=== PATIENT | male | born 1985 | race Caucasian/White ===

== ENCOUNTER 2020-11-05 12:15 | Emergency (ER) | payer OTHER ==
[~2020-11-05] VITALS: Ht 162.6 cm; Wt 90.0 kg
[2020-11-05 12:15] VITALS: BP 141/79
[2020-11-05] MEDS ORDERED: IBUPROFEN 600 MG TABLET. PO ONE (13:00)
[2020-11-05] MEDS ORDERED: HYDROcodone/APAP 5/325MG 1 TAB TABLET PO ONE (13:00)
--- NOTE | 2020-11-05 13:14 | RAD ---
Right knee 4 views: Reason for examination: [place] a pop after stepping into a hole. There is no evidence of an acute site of fracture or dislocation. The bone density is normal. No abno rmal periosteal reaction is seen. The inferior end of an intramedullary merle is seen in the distal fem ur. Joint spaces are maintained. IMPRESSION: No acute abnormality evident at the right knee. Electronically signed by: Dahiana Rosario MD (11/05/2020 1:12 PM) [id number]
--- NOTE | 2020-11-05 13:22 | PHYS DOC ---
Adult General Chief Complaint Chief Complaint: KNEE INJURY HPI HPI Patient is a 35-year-old male presents emergency department complaining of stepping into a hole approximately 40 minutes prior to arrival and feeling his right knee pop. Patient reports he felt like it buckled backwards. Patient complains of an 8 out of 10 pain. Denies numbness or tingling distally to his right knee. Denies any other physical injury from this incident. Patient reports it is hard to walk. Patient reports an allergy to penicillin, reports taking Protonix at home for gastric reflux. Denies any other physical complaints or physical concerns. (ANA THOMAS APRN) Review of Systems Review of Systems 14 body systems of review of systems have been reviewed. See HPI for pertinent positives and negative responses, otherwise all other systems are negative, nonpertinent or noncontributory. Constitutional: Negative except as outlined in HPI above. Skin: Negative except as outlined in HPI above. Eyes: Negative except as outlined in HPI above. HENT: Negative except as outlined in HPI above. Respiratory: Negative except as outlined in HPI above. Cardiovascular: Negative except as outlined in HPI above. GI: Negative except as outlined in HPI above. : Negative except as outlined in HPI above. Musculoskeletal: Negative except as outlined in HPI above. Integument: Negative except as outlined in HPI above. Neurologic: Negative except as outlined in HPI above. Endocrine: Negative except as outlined in HPI above. Lymphatic: Negative except as outlined in HPI above. Psychiatric: Negative except as outlined in HPI above. (ANA THOMAS APRN) Current Medications Current Medications Current Medications Medications (Trade) Dose Ordered Sig/Kai Start Time Stop Time Status Last Admin Dose Admin Acetaminophen/ Hydrocodone Bitart (Lortab 5/325) 1 tab 1X ONCE 11/05/20 13:00 11/05/20 13:01 UNV Ibuprofen (Motrin) 600 mg 1X ONCE 11/05/20 13:00 11/05/20 13:01 UNV (ANA THOMAS APRN) Allergies Allergies Allergies Coded Allergies Type Severity Reaction Last Updated Verified Penicillins Allergy Unknown 11/05/20 Yes (ANA THOMAS APRN) Physical Exam Physical Exam Constitutional: Well developed, well nourished, no acute distress, non-toxic appearance. 35-year-old male in no apparent distress however is self splinting right knee. HENT: Normocephalic, atraumatic. Eyes: Conjunctiva normal, no discharge. Neck: Normal range of motion, no stridor. Cardiovascular: No cyanosis appreciated, distal cap refill less than 2 seconds. Lungs & Thorax: Patient is in no respiratory distress, no audible adventitious lung sounds appreciated. Abdomen: Nontender, no abnormalities noted. Skin: Warm, dry, no erythema, no rash. Back: No tenderness, no deformities. Extremities: No tenderness, no cyanosis, no clubbing, ROM intact, no edema. Negative valgus/varus/Hernan's/Juhi's/anterior drawer test for ligamentous knee injury, no crepitus appreciated, no swelling appreciated, no skin discoloration appreciated, no deformities appreciated. Cap refill less than 2 seconds, 2+ dorsalis pedis/posterior tibial pulse. Neurologic: Alert and oriented X 3, normal motor function, normal sensory function, no focal deficits noted. Psychologic: Affect normal, judgement normal, mood normal. (ANA THOMAS APRN) EKG EKG [] (ANA THOMAS APRN) Radiology/Procedures Radiology/Procedures PATIENT: JEANINE LU ACCOUNT: [id number] : 1985 LOCATION: ER AGE: 35 SEX: M EXAM STATUS: REG ER ORD. PHYSICIAN: ANA THOMAS APRN REASON: [place] a pop after stepping into a hole PROCEDURE: KNEE RIGHT 4V Right knee 4 views: Reason for examination: [place] a pop after stepping into a hole. There is no evidence of an acute site of fracture or dislocation. The bone density is normal. No abnormal periosteal reaction is seen. The inferior end of an intramedullary merle is seen in the distal femur. Joint spaces are maintained. IMPRESSION: No acute abnormality evident at the right knee. Electronically signed by: Navi Gonzales MD (11/05/2020 1:12 PM) [id number] DICTATED AND SIGNED BY: NAVI GONZALES MD DATE: 11/05/20 1310 (ANA THOMAS APRN) Heart Score C/O Chest Pain: No Risk Factors: Risk Factors: DM, Current or recent (<one month) smoker, HTN, HLP, family history of CAD, obesity. Risk Scores: Risk Factors: DM, Current or recent (<one month) smoker, HTN, HLP, family history of CAD, obesity. (ANA THOMAS APRN) Course & Med Decision Making Course & Med Decision Making Pertinent Labs and Imaging studies reviewed. (See chart for details) 35-year-old male, vital signs reviewed, presents to the emergency department concerning right knee injury after stepping into a hole while at work. Physical examination concerning for possible bony knee injury versus ligamentous knee sprain, will order 4 view x-ray of right knee, ice packs, p.o. ibuprofen and Perkins for 8 out of 10 pain. X-ray imaging negative for acute fracture, this is most likely a sprain of the right knee, discussed findings with patient, discussed knee immobilizer, Kenn wrap, RICE therapy, pain medication use, strict follow-up with primary care this week for reevaluation of knee for consideration of possible MRI if warranted. Patient amenable to ED work-up and ED discharge planning. Discussed with the patient all findings and diagnostic testing as well as the need to follow-up with their primary care provider for further evaluation and treatment or return to the ED if any new or worsening symptoms. Strict return precautions were also discussed at length, the patient voiced understanding and agreement with the discharge planning. The patient was nontoxic in appearance, in no apparent distress, and hemodynamically stable at the time of disposition. (ANA THOMAS APRN) Dragon Disclaimer Dragon Disclaimer This electronic medical record was generated, in whole or in part, using a voice recognition dictation system. (ANA THOMAS APRN) Attending Co-Sign The patient was seen and interviewed as well as examined at the bedside. The chart was reviewed. The case was discussed. Agree with the plan of care. (VIRGINIA JULIO DO) Departure Departure: Impression: Primary Impression: Right knee sprain Disposition: HOME / SELF CARE / HOMELESS Condition: GOOD Referrals: ANA FISHMAN (PCP) Patient Instructions: Knee Immobilization, Knee Replacement, Preparing For, Knee Wraps (Elastic Bandage) and RICE Additional Instructions: You were seen today in the emergency department for a injury to your right knee after stepping into a hole while you were at work. A x-ray was performed which was reassuring and that it did not show a fracture or injury of your bones. However as we discussed at length this is most likely a knee sprain, knee sprains can heal with immobilization and nonsurgical therapies, however there are times when there may be a surgical intervention warranted. Therefore I encourage you to follow-up with your primary care physician this week for ongoing evaluation of your knee sprain as an MRI may be warranted in the future. Please use ice packs 30 minutes on and 30 minutes off while awake as we discussed, please use your knee immobilizer until otherwise told by your primary care physician that you should see this week. Please return to the emergency department for worsening symptoms or other concerns. You may continue to use all of your home medications as directed by your primary care physician, I am adding a temporary regimen of pain medications to help while you are healing from this injury. Thank you for visiting our Emergency Department. It was a pleasure taking care of you today in the emergency department and we appreciate you trusting us with your care. If any additional problems come up don't hesitate to return to visit us. Please follow up with your primary care provider so they can plan additional care if needed and know about the problem that you had. If symptoms worsen come back to the Emergency Department. Any concerning symptoms that start such as chest pain, shortness of air, weakness or numbness on one side of the body, running high fevers or any other concerning symptoms return to the ER. EMERGENCY DEPARTMENT GENERAL DISCHARGE INSTRUCTIONS Thank you for coming to [facility] (ED) today and trusting us with you care. We trust that you had a positivie experience in our Emergency Department. If you wish to speak to the department management, you may call the director at [phone]. YOUR FOLLOW UP INSTRUCTIONS ARE FOLLOWS: 1. Do you have a private Doctor? If you do not have a private doctor, please ask for a resource list of physicians or clinics that may be able to assist you with follow up care. 2. The Emergency Physician has interpreted your x-rays. The X-Ray specialist will also review them. If there is a change in the findings, you will be notified in 48 hours when at all possible. 3. A lab test or culture has been done, your results will be reviewed and you will be notified if you need a change in treatment. ADDITIONAL INSTRUCTIONS AND INFORMATION: 1. Your care today has been supervised by a physician who is specially trained in emergency care. Many problems require more than one evaluation for a complete diagnosis and treatment. We recommend that you schedule your follow up appointment as recommended to ensure complete treatment of you illness or injury. If you are unable to obtain follow up care and continue to have a problem, or if your condition worsens, we recommend that you return to the ED. 2. We are not able to safely determine your condition over the phone nor are we able to give sound medical advice over the phone. For these safety reasons, if you call for medical advice we will ask you to come to the ED for further evaluation. 3. If you have any questions regarding these discharge instructions please call the ED at [phone]. SAFETY INFORMATION: In the interest of safety, wellness, and injury prevention; we encourage you to wear your sealbelt, if you smoke; quite smoking, and we encourage family to use a protective helmet for bicycling and other sporting events that present an increased risk for head injury. IF YOUR SYMPTOMS WORSEN OR NEW SYMPTOMS DEVELOP, OR YOU HAVE CONCERNS ABOUT YOUR CONDITION; OR IF YOUR CONDITION WORSENS WHILE YOU ARE WAITING FOR YOUR FOLLOW UP APPOINTMENT; EITHER CONTACT YOUR PRIMARY CARE DOCTOR, THE PHYSICIAN WHOSE NAME AND NUMBER YOU WERE GIVEN, OR RETURN TO THE ED IMMEDIATELY. Scripts Hydrocodone Bit/Acetaminophen (HYDROCODONE-APAP 5-325 ) 1 Each Tablet 1 TAB PO PRN Q6HRS PRN for SEVERE PAIN 7-10, #10 TAB 0 Refills Prov: ANA THOMAS APRN 11/05/20 Ibuprofen (IBUPROFEN) 600 Mg Tablet 600 MG PO Q6-8HRS PRN for PAIN, #30 TAB 0 Refills Prov: ANA THOMAS APRN 11/05/20 Problem Qualifiers Primary Impression: Right knee sprain Encounter type: initial encounter Involved ligament of knee: unspecified ligament Qualified Codes: S83.91XA - Sprain of unspecified site of right knee, initial encounter ANA HTOMAS APRN Nov 05, 2020 13:22 VIRGINIA JULIO DO Nov 06, 2020 06:27
[2020-11-05] MEDS ORDERED: HYDR-2155 PO (14:05)
[2020-11-05] MEDS ORDERED: IBUP600T16 PO (14:05)
== END 2020-11-05 14:20 | disposition home or self-care (01) ==
LOC: ER 12:15
DX: S83.91XA Sprain of unspecified site of right knee, initial encounter (principal); Z88.0 Allergy status to penicillin; X50.9XXA Other and unspecified overexertion or strenuous movements or postures, initial encounter; Y93.89 Activity, other specified; Y92.89 Other specified places as the place of occurrence of the external cause; Y99.8 Other external cause status
CPT/HCPCS: 29505; 73564; 99283